=== PATIENT | male | born 1965 | race Caucasian/White ===

== ENCOUNTER 2017-10-05 08:51 | Day surgery (SDC) | payer OTHER, SELFPAY ==
[2017-10-05] MEDS ORDERED: LIDOCAINE 2% MPF 5 ML VIAL ONE ×2 (09:56→12:54)
[2017-10-05] MEDS ORDERED: BUPIVACAINE 0.25% PF 10 ML VIAL ONE (09:57)
[2017-10-05] MEDS ORDERED: TETRACAINE HCL 0.5% 2ML OPTH ONE (09:57)
[2017-10-05] MEDS ORDERED: NA CHLORIDE 0.9% 500 ML ONE (10:04)
[2017-10-05] MEDS: KETOROLAC OPTHALMIC 5 ML BOT ONE ×3 (10:20→10:30)
[2017-10-05] MEDS: PHENYLEPHRINE 10% OPTH 5ML ONE ×3 (10:20→10:30)
[2017-10-05] MEDS: CYCLOPENTOLATE 1% OPTH 2 ML ONE ×3 (10:20→10:30)
[2017-10-05] MEDS: Gatifloxacin Ophth 0.5% (2.5 ML BTL) OPTH ONE ×3 (10:20→10:30)
[2017-10-05] MEDS ORDERED: MOXIFLOXACIN HCL 10 DROPS/ML **OR USE OPTH ONE (10:24)
[2017-10-05] MEDS ORDERED: EPINEPHRINE/PF 1 MG/ML AMP ONE (10:24)
[2017-10-05] MEDS ORDERED: BALANCED SALT IRRIG PLAIN 500 ML BTL IRR ONE (10:24)
[2017-10-05] MEDS ORDERED: NS 0.9% VIAL 10 ML ONE (10:24)
[2017-10-05] MEDS ORDERED: DUOVISC 1 KIT OPTH ONE (10:24)
[2017-10-05] MEDS ORDERED: PROPOFOL 200 MG/20 ML VIAL IV ONE (12:53)
--- NOTE | 2017-10-05 13:41 | P.BOP ---
Preoperative diagnosis: Nuclear sclerotic and posterior subcapsular cataract OS Postoperative diagnosis: Same Primary procedure: Phacoemulsification with IOL OS Estimated blood loss: None Anesthesia: Local (Subtenon's infusion with anesthesia for cataract surgery) Complications: None Implants: ZCB00 +19.0 Transferred to: Other (Day surgery) Condition: Good
[2017-10-05 13:48] VITALS: BP 128/55; TEMP 97; O2SAT 98
--- NOTE | 2017-10-06 00:18 | OP ---
Date of Procedure: 10/05/2017 Surgeon: Mercy Sinha MD Anesthesiologist: 1. Stephany Bridges CRNA. 2. Justo Guerin M.D. Preoperative Diagnosis: Nuclear sclerotic cataract, and posterior subcapsular cataract OS (left eye) . Operation Performed: Phacoemulsification with intraocular lens implant, OS (left eye). Anesthesia: Per cataract surgery. Complications: None. Description Of Procedure: In day surgery, the patient was prepped with Betadine and draped. A conju nctival incision was made in the inferior nasal quadrant with Brandie scissors. A sub-Tenon block c onsisting of a 1:1 mixture of 2% Xylocaine and 0.25% bupivacaine was placed through the conjunctival incision with a blunt cannula. A Honan balloon was placed over the eye and the patient was transferr ed to the operating room. In the operating room the patient was prepped and draped in the usual sterile fashion for ophthalmic surgery. A lid speculum was placed in the OS. Two paracentesis sites were made superiorly and infer iorly in the limbal cornea. Viscoat was placed in the anterior chamber and a crescent blade was used to make a corneal groove and tunnel, and a keratome was used to enter the anterior chamber. Provisc was placed in the anterior chamber and a 360 degree capsulotomy was performed with a cystitome. The lens was hydrodissected with BSS and rotated freely. The lens was removed with a stop and chop tech nique. A 20.70 CDE was used to remove the lens. Residual cortex was removed with the irrigation and aspiration. Provisc was placed in the capsular bag. A ZCB00 +19.0 diopter lens was placed in the c apsular bag without complications. Irrigation and aspiration was used to remove residual viscoelasti c. The paracentesis sites were hydrated with BSS. The wound and paracentesis sites were inspected a nd found to be watertight. Vigamox 0.07 cc was placed intracamerally at the end of the procedure. T he eye was irrigated with balanced salt solution. The eye was patched with a soft cotton patch and F ox metal shield. The patient was returned to day surgery in good condition. Comments: One 10-0 nylon suture was placed in the wound. Discharge Instructions: Mr. Akins is discharged to home in good condition and is to follow up with Dr. Sinha in the morning. SATNAM/PANCHO Voice ID: [id number] Report ID: [id number]
== END 2017-10-05 14:20 | disposition home or self-care (01) ==
LOC: OR 08:51
PROVIDERS: ATTEND Ophthalmology Retina Specialist
PROC: 08RK3JZ Replacement of Left Lens with Synthetic Substitute, Percutaneous Approach (ICD-10-PCS; principal; 2017-10-05 11:00)
DX: H25.12 Age-related nuclear cataract, left eye (principal); H25.042 Posterior subcapsular polar age-related cataract, left eye; H43.813 Vitreous degeneration, bilateral; I25.2 Old myocardial infarction; M10.9 Gout, unspecified; F17.200 Nicotine dependence, unspecified, uncomplicated; Z90.49 Acquired absence of other specified parts of digestive tract; Z98.84 Bariatric surgery status
CPT/HCPCS: 66984; J0171

== ENCOUNTER 2019-04-16 05:06 | Emergency (ER) | payer OTHER ==
[2019-04-16] MEDS ORDERED: WATER FOR INJ,STERILE 10 ML ONE (06:07)
[2019-04-16] MEDS ORDERED: CEFTRIAXONE 1000 MG/VIAL ONE (06:07)
[2019-04-16] MEDS ORDERED: MORPHINE 4 MG/ML SYR ONE ×2 (06:18→07:42)
[2019-04-16] MEDS ORDERED: ONDANSETRON 4 MG (ODT) TAB ONE (06:18)
[2019-04-16 06:38] LABS: Urine Blood NEGATIVE (NEG); Urine Glucose NEGATIVE (NEG); Urine Protein NEGATIVE (NEG); Urine Specific Gravity 1.005 (1.005-1.030)
[2019-04-16 06:39] LABS: Urine Bacteria <20 /HPF (NONE SEEN); Urine Culture Reflex Order NOT NEEDED; Urine RBC <5 /HPF (NONE SEEN)
[2019-04-16] MEDS ORDERED: KETOROLAC 30 MG/ML INJ ONE (07:42)
[2019-04-16] MEDS ORDERED: NA CHLORIDE 0.9% 250 ML ONE (07:42)
[2019-04-16] MEDS ORDERED: FAMOTIDINE 20 MG/2 ML VIAL IV ONE (07:42)
--- NOTE | 2019-04-16 08:12 | ER ---
Nurse's Notes [facility] Name: Melody Akins Jr Age: 53 yrs Sex: Male : 1965 Arrival Date: 04/16/2019 Time: 05:09 Bed 7 Private MD: Diagnosis: Hydrocele, unspecified Presentation: 04/16 05:18 Presenting complaint: Patient states: Right testicular swelling, pain with urination; lp1 States swelling began about a week ago, but pain increased; Seen at local clinic yesterday and recommended to come to ER. Transition of care: patient was not received from another setting of care. Onset of symptoms was April 16, 2019. Risk Assessment: Do you want to hurt yourself or someone else? Patient reports no desire to harm self or others. Initial Sepsis Screen: Does the patient meet any 2 criteria? No. Patient's initial sepsis screen is negative. Does the patient have a suspected source of infection? No. Patient's initial sepsis screen is negative. Care prior to arrival: None. 05:18 Method Of Arrival: Wheelchair lp1 05:18 Acuity: RANDAL 3 lp1 Historical: - Allergies: 05:20 No Known Allergies; lp1 - Home Meds: 05:20 None [Active]; lp1 - PMHx: 05:20 Alcoholism; CVA; Myocardial infarction; lp1 - PSHx: 05:20 Hernia repair; Gastric Bypass; Cholecystectomy; lp1 - Immunization history:: Adult Immunizations up to date. - Social history:: Smoking status: Patient/guardian denies using tobacco. - Ebola Screening: : No symptoms or risks identified at this time. Screenin:21 Abuse screen: Denies threats or abuse. Denies injuries from another. Nutritional lp1 screening: No deficits noted. Tuberculosis screening: No symptoms or risk factors identified. Fall Risk None identified. Assessment: 05:20 General: Appears in no apparent distress. Behavior is appropriate for age. Pain: lp1 Complains of pain in groin Pain currently is 10 out of 10 on a pain scale. Quality of pain is described as pressure. Neuro: Level of Consciousness is awake, alert, obeys commands, Oriented to person, place, time, situation. Cardiovascular: Patient's skin is warm and dry. Respiratory: Respiratory effort is even, unlabored, Respiratory pattern is regular. GI: No signs and/or symptoms were reported involving the gastrointestinal system. : Swelling noted on scrotum Reports pain with urination. EENT: No signs and/or symptoms were reported regarding the EENT system. Derm: Skin is intact, Skin is dry, Skin is normal. Musculoskeletal: No deficits noted. 06:45 Reassessment: Patient appears in no apparent distress at this time. Patient resting, lp1 eyes closed, respirations unlabored ; Aware of waiting for ultrasound. 07:04 Reassessment: Patient appears in no apparent distress at this time. Patient and/or ch family updated on plan of care and expected duration. Pain level reassessed. Patient is alert, oriented x 3, equal unlabored respirations, skin warm/dry/pink. Patient states symptoms have not improved. General: Appears in no apparent distress. uncomfortable, Behavior is calm, cooperative, appropriate for age. Respiratory: No deficits noted. GI: No signs and/or symptoms were reported involving the gastrointestinal system. : Swelling noted on scrotum. Derm: Skin is pink, warm \T\ dry. 07:43 Reassessment: Patient appears in no apparent distress at this time. No changes from previously documented assessment. Patient and/or family updated on plan of care and expected duration. Pain level reassessed. Patient is alert, oriented x 3, equal unlabored respirations, skin warm/dry/pink. pt states he does not feel any better. us contacted, US tech at bedside now. provider notified of pt pain level. awaiting US results. 08:18 Reassessment: Patient appears in no apparent distress at this time. Patient and/or ch family updated on plan of care and expected duration. Pain level reassessed. Patient is alert, oriented x 3, equal unlabored respirations, skin warm/dry/pink. Patient states feeling better. Patient states symptoms have improved. Vital Signs: 05:19 BP 127 / 67; Pulse 70; Resp 18; Temp 98(O); Pulse Ox 100% on R/A; Weight 101.6 kg; lp1 Height 5 ft. 9 in. (175.26 cm); Pain 10/10; 07:10 BP 116 / 92; Pulse 61; Resp 15; Temp 98.8; Pulse Ox 99% on R/A; Pain 8/10; ch 08:18 BP 134 / 70; Pulse 65; Resp 14; Temp 98.9; Pulse Ox 99% on R/A; Pain 5/10; ch 05:19 Body Mass Index 33.08 (101.60 kg, 175.26 cm) lp1 ED Course: 05:09 Patient arrived in ED. ag3 05:10 Ramses Gallagher MD is Attending Physician. gs 05:16 Ramses Gallagher MD is Attending Physician. gs 05:18 Kelli Costa, RN is Primary Nurse. lp1 05:19 Triage completed. lp1 05:19 Arm band placed on. lp1 05:22 Patient has correct armband on for positive identification. Placed in gown. lp1 05:45 Levy Hammer PA is PHCP. jr8 05:45 Ramses Gallagher MD is Attending Physician. jr8 07:04 Primary Nurse role handed off by Kelli Costa, RN ch 07:04 Ana Jimenez, BRANDON is Primary Nurse. ch 07:40 Inserted saline lock: 20 gauge in right antecubital area, using aseptic technique. ch Blood collected. 07:40 No provider procedures requiring assistance completed. ch 07:57 US Scrotum Testicles In Process Unspecified. EDMS 07:57 Ultrasound completed. Patient tolerated well. Notified ED Physician jamaica. sg3 08:10 Jacky Valenzuela MD is Referral Physician. jr8 08:19 IV discontinued, intact, bleeding controlled, No redness/swelling at site. Pressure ch dressing applied. Administered Medications: 06:20 Drug: Rocephin (cefTRIAXone) 1 grams Route: IM; Site: right gluteus; lp1 07:31 Follow up: Response: No adverse reaction ch 06:20 Drug: morphine 4 mg Route: IM; Site: right gluteus; lp1 07:31 Follow up: Response: No adverse reaction; Pain is unchanged, physician notified ch 06:20 Drug: Zofran 4 mg Route: PO; lp1 07:30 Follow up: Response: No adverse reaction ch 07:52 Drug: morphine 4 mg Route: IVP; Site: right antecubital; ch 08:21 Follow up: Response: No adverse reaction; Marked relief of symptoms ch 07:52 Drug: TORadol - Ketorolac 15 mg Route: IVP; Site: right antecubital; ch 08:20 Follow up: Response: No adverse reaction; Marked relief of symptoms 07:52 Drug: Pepcid 20 mg Route: IVP; Site: right antecubital; 08:20 Follow up: Response: No adverse reaction; Marked relief of symptoms Outcome: 08:11 Discharge ordered by MD. wren 08:19 Discharged to home ambulatory, with family. 08:19 Condition: improved 08:19 Discharge instructions given to patient, Instructed on discharge instructions, follow up and referral plans. medication usage, Demonstrated understanding of instructions, follow-up care, medications, Prescriptions given X 1. 08:24 Patient left the ED. Signatures: Dispatcher [employer] EDMS Ana Jimenez RN RN Kelli Costa RN RN lp1 Levy Hammer PA PA jr8 Ramses Gallagher MD MD gs Godinez, Sarah sg3 Libra Peters3
--- NOTE | 2019-04-16 08:12 | EDPHYS ---
Physician Documentation [facility] Name: Melody Akins Jr Age: 53 yrs Sex: Male : 1965 Arrival Date: 04/16/2019 Time: 05:09 Bed 7 Private MD: ED Physician Ramses Gallagher HPI: 04/16 05:18 This 53 yrs old Male presents to ER via Unassigned with complaints of Groin gs Pain. 05:18 The patient presents with swelling, that is severe, of the right testicle. Onset: The gs symptoms/episode began/occurred 1 week(s) ago. Modifying factors: the symptoms are aggravated by movement, urinating. Associated signs and symptoms: Pertinent negatives: fever. Associated signs and symptoms: Pertinent negatives: vomiting. Severity of symptoms: At their worst the symptoms were severe, in the emergency department the symptoms are unchanged. The patient has not experienced similar symptoms in the past. Historical: - Allergies: 05:20 No Known Allergies; lp1 - Home Meds: 05:20 None [Active]; lp1 - PMHx: 05:20 Alcoholism; CVA; Myocardial infarction; lp1 - PSHx: 05:20 Hernia repair; Gastric Bypass; Cholecystectomy; lp1 - Immunization history:: Adult Immunizations up to date. - Social history:: Smoking status: Patient/guardian denies using tobacco. - Ebola Screening: : No symptoms or risks identified at this time. ROS: 05:18 All other systems are negative. gs 05:52 Constitutional: Negative for fever, chills, and weight loss, Eyes: Negative for injury, jr8 pain, redness, and discharge, ENT: Negative for injury, pain, and discharge, Neck: Negative for injury, pain, and swelling, Cardiovascular: Negative for chest pain, palpitations, and edema, Respiratory: Negative for shortness of breath, cough, wheezing, and pleuritic chest pain, Abdomen/GI: Negative for abdominal pain, nausea, vomiting, diarrhea, and constipation, MS/Extremity: Negative for injury and deformity. 05:52 : Positive for burning with urination, testicular pain Negative for injury or acute deformity, urinary frequency, hematuria, pelvic pain, flank pain, difficulty urinating, bladder incontinence, foul smelling urine. Exam: 05:18 Head/Face: Normocephalic, atraumatic. Eyes: Pupils equal round and reactive to light, gs extra-ocular motions intact. Lids and lashes normal. Conjunctiva and sclera are non-icteric and not injected. Cornea within normal limits. Periorbital areas with no swelling, redness, or edema. ENT: Nares patent. No nasal discharge, no septal abnormalities noted. Tympanic membranes are normal and external auditory canals are clear. Oropharynx with no redness, swelling, or masses, exudates, or evidence of obstruction, uvula midline. Mucous membranes moist. Neck: Trachea midline, no thyromegaly or masses palpated, and no cervical lymphadenopathy. Supple, full range of motion without nuchal rigidity, or vertebral point tenderness. No Meningismus. 05:18 Constitutional: The patient appears alert, awake. 05:19 Chest/axilla: Normal chest wall appearance and motion. Nontender with no deformity. gs No lesions are appreciated. Cardiovascular: Regular rate and rhythm with a normal S1 and S2. No gallops, murmurs, or rubs. Normal PMI, no JVD. No pulse deficits. Respiratory: Lungs have equal breath sounds bilaterally, clear to auscultation and percussion. No rales, rhonchi or wheezes noted. No increased work of breathing, no retractions or nasal flaring. Abdomen/GI: Soft, non-tender, with normal bowel sounds. No distension or tympany. No guarding or rebound. No evidence of tenderness throughout. Back: No spinal tenderness. No costovertebral tenderness. Full range of motion. Skin: Warm, dry with normal turgor. Normal color with no rashes, no lesions, and no evidence of cellulitis. MS/ Extremity: Pulses equal, no cyanosis. Neurovascular intact. Full, normal range of motion. Neuro: Awake and alert, GCS 15, oriented to person, place, time, and situation. Cranial nerves II-XII grossly intact. Motor strength 5/5 in all extremities. Sensory grossly intact. Cerebellar exam normal. Normal gait. 05:19 : Male external genitalia: erythema, is absent, swelling, scrotal, that is severe, tenderness, of the right testicle is noted, that is moderate. Vital Signs: 05:19 BP 127 / 67; Pulse 70; Resp 18; Temp 98(O); Pulse Ox 100% on R/A; Weight 101.6 kg; lp1 Height 5 ft. 9 in. (175.26 cm); Pain 10/10; 07:10 BP 116 / 92; Pulse 61; Resp 15; Temp 98.8; Pulse Ox 99% on R/A; Pain 8/10; ch 08:18 BP 134 / 70; Pulse 65; Resp 14; Temp 98.9; Pulse Ox 99% on R/A; Pain 5/10; ch 05:19 Body Mass Index 33.08 (101.60 kg, 175.26 cm) lp1 MDM: 05:15 Patient medically screened. 08:08 Data reviewed: vital signs, nurses notes, radiologic studies, and as a result, I will jr8 discharge patient. Data interpreted: Pulse oximetry: on room air is 100 %. Interpretation: normal. Counseling: I had a detailed discussion with the patient and/or guardian regarding: the historical points, exam findings, and any diagnostic results supporting the discharge/admit diagnosis, radiology results. Medication response: morphine relieved the patient's pain. Symptoms have resolved. Physician consultation: Jacky Valenzuela MD was called at 08:05, regarding outpatient follow-up, and will see patient in office. ED course: Pt pain controlled, US shows hydrocele with good flow, discussed case with Dr. Valenzuela who recommends FU in clinic. Diagnosis and plan discussed with pt. 04/16 05:17 Order name: Urine Microscopic Only; Complete Time: 06:46 04/16 05:30 Order name: Urine Dipstick--Ancillary (enter results); Complete Time: 06:46 [facility] 04/16 05:17 Order name: US Scrotum Testicles; Complete Time: 15:20 04/16 05:17 Order name: Urine Dipstick-Ancillary (obtain specimen); Complete Time: 05:22 04/16 07:39 Order name: SL; Complete Time: 08:20 jr8 Administered Medications: 06:20 Drug: Rocephin (cefTRIAXone) 1 grams Route: IM; Site: right gluteus; lp1 07:31 Follow up: Response: No adverse reaction ch 06:20 Drug: morphine 4 mg Route: IM; Site: right gluteus; lp1 07:31 Follow up: Response: No adverse reaction; Pain is unchanged, physician notified ch 06:20 Drug: Zofran 4 mg Route: PO; lp1 07:30 Follow up: Response: No adverse reaction ch 07:52 Drug: morphine 4 mg Route: IVP; Site: right antecubital; ch 08:21 Follow up: Response: No adverse reaction; Marked relief of symptoms ch 07:52 Drug: TORadol - Ketorolac 15 mg Route: IVP; Site: right antecubital; ch 08:20 Follow up: Response: No adverse reaction; Marked relief of symptoms ch 07:52 Drug: Pepcid 20 mg Route: IVP; Site: right antecubital; ch 08:20 Follow up: Response: No adverse reaction; Marked relief of symptoms ch Disposition: 04/16/19 08:11 Discharged to Home. Impression: Hydrocele, unspecified. - Condition is Stable. - Discharge Instructions: Hydrocele, Adult, Hydrocelectomy, Adult. - Prescriptions for Naprosyn 500 mg Oral Tablet - take 1 tablet by ORAL route 2 times per day take with food; 20 tablet. - Work release form, Medication Reconciliation Form, Thank You Letter form. - Follow up: Jacky Valenzuela MD; When: 2 - 3 days; Reason: Recheck today's complaints, Continuance of care, Re-evaluation by your physician. - Problem is new. - Symptoms have improved. Addendum: 04/19/2019 14:50 Co-signature as Attending Physician, Ramses Gallagher MD. g s Signatures: Dispatcher [employer] EDMS Ana Jimenez RN RN Kelli Costa RN RN lp1 Levy Hammer, VIJI PA jr8 Ramses Gallagher MD MD Corrections: (The following items were deleted from the chart) 04/16 08:24 08:11 04/16/2019 08:11 Discharged to Home. Impression: Hydrocele, unspecified. ch Condition is Stable. Forms are Medication Reconciliation Form, Thank You Letter, Antibiotic Education, Prescription Opioid Use. Follow up: Jacky Valenzuela; When: 2 - 3 days; Reason: Recheck today's complaints, Continuance of care, Re-evaluation by your physician. Problem is new. Symptoms have improved. jr8
--- NOTE | 2019-04-16 08:19 | RAD REPORT ---
EXAM DESCRIPTION: US - Scrotum Testicles - 04/16/2019 7:58 am CLINICAL HISTORY: Testicular pain and swelling COMPARISON: None FINDINGS: Right testicle measures 4.1 x 2.7 x 3.6 centimeters. Echotexture is homogeneous. Normal bl ood flow Left testicle measures 4.5 x 2.3 x 3 centimeters. Echotexture is homogeneous. Normal blood flow The epididymides are normal in size and echotexture. Normal blood flow is seen. A very large right hydrocele. Small left hydrocele IMPRESSION: Very large right hydrocele
[2019-04-16 08:33] VITALS: O2SAT 99
[2019-04-16 08:34] VITALS: BP 134/70; TEMP 98.9
== END 2019-04-16 08:24 | disposition home or self-care (01) ==
LOC: ER 05:06
DX: N43.3 Hydrocele, unspecified (principal)
CPT/HCPCS: 76870; 81003; 81015; 96372; 96374; 96375; 99284

== ENCOUNTER 2019-07-30 12:53 | Emergency (ER) | payer OTHER ==
[2019-07-30] MEDS ORDERED: HYDROCODONE/APAP 5/325 MG TAB ONE (13:30)
[2019-07-30 13:45] LABS: Urine Blood NEGATIVE (NEG); Urine Glucose NEGATIVE (NEG); Urine Protein NEGATIVE (NEG); Urine Specific Gravity 1.025 (1.005-1.030)
--- NOTE | 2019-07-30 14:41 | RAD REPORT ---
EXAM DESCRIPTION: US - Scrotum Testicles - 07/30/2019 2:35 pm CLINICAL HISTORY: Right testicular pain and swelling COMPARISON: Scrotal ultrasound March 2019 FINDINGS: Patient has a very large right hydrocele. This may be persistent or recurrent. A large hyd rocele was detailed previously. No intratesticular mass. Doppler evaluation shows normal blood flow within each testicle. No epididym is enlargement or hyperemia. No herniated bowel loops identifiable. No scrotal wall thickening or christine ma. IMPRESSION: No testicular or epididymis abnormality. Very large persistent or recurrent right side hydrocele.
--- NOTE | 2019-07-30 15:07 | EDPHYS ---
Physician Documentation [facility] Name: Melody Akins Jr Age: 53 yrs Sex: Male : 1965 Arrival Date: 07/30/2019 Time: 12:55 Bed 16 Private MD: Scott Murillo ED Physician Alberto Perez HPI: 07/30 15:01 This 53 yrs old Male presents to ER via Ambulatory with complaints of rn Testicular Swelling. 15:01 The patient presents with swelling, tenderness. Onset: The symptoms/episode rn began/occurred 4 month(s) ago. Severity of symptoms: At their worst the symptoms were moderate. 15:01 The patient has experienced similar episodes in the past. The patient has not recently rn seen a physician. 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 . Historical: - Allergies: 13:06 No Known Allergies; sv - PMHx: 13:06 Alcoholism; CVA; Myocardial infarction; sv - PSHx: 13:06 Hernia repair; Gastric Bypass; Cholecystectomy; sv - Immunization history:: Adult Immunizations up to date, Flu vaccine is not up to date. - Social history:: Smoking status: Patient/guardian denies using tobacco, Patient uses alcohol, on a daily basis. - Ebola Screening: : No symptoms or risks identified at this time. - Family history:: not pertinent. - Hospitalizations: : No recent hospitalization is reported. ROS: 15:04 Constitutional: Negative for fever, chills, and weight loss, Eyes: Negative for injury, rn pain, redness, and discharge, Cardiovascular: Negative for chest pain, palpitations, and edema, Respiratory: Negative for shortness of breath, cough, wheezing, and pleuritic chest pain, Abdomen/GI: Negative for abdominal pain, nausea, vomiting, diarrhea, and constipation, : + right testicular swelling and mild tenderness without erythema or fluctuance MS/Extremity: Negative for injury and deformity, Skin: Negative for injury, rash, and discoloration, Neuro: Negative for headache, weakness, numbness, tingling, and seizure. Exam: 15:04 Constitutional: This is a well developed, well nourished patient who is awake, alert, rn and in no acute distress. Abdomen/GI: soft, non-tender Male : + right testicular swelling and mild tenderness without erythema or warmth, no fluctuance Vital Signs: 13:06 BP 154 / 103; Pulse 95; Resp 17; Temp 98.4; Pulse Ox 98% ; Weight 88.45 kg; Height 5 sv ft. 6 in. (167.64 cm); Pain 6/10; 14:23 BP 158 / 86; Pulse 90; Resp 18; Temp 98; Pulse Ox 100% on R/A; mg2 15:23 BP 153 / 83; Pulse 88; Resp 18; Temp 98; Pulse Ox 100% on R/A; mg2 13:06 Body Mass Index 31.47 (88.45 kg, 167.64 cm) sv MDM: 13:16 Patient medically screened. rn 15:04 Differential diagnosis: UTI, hydrocele, varicocele, spermatocele. Data reviewed: vital rn signs, nurses notes, lab test result(s), radiologic studies, ultrasound, and as a result, I will discharge patient. Counseling: I had a detailed discussion with the patient and/or guardian regarding: the historical points, exam findings, and any diagnostic results supporting the discharge/admit diagnosis, lab results, radiology results, the need for outpatient follow up, to return to the emergency department if symptoms worsen or persist or if there are any questions or concerns that arise at home. Special discussion: I discussed with the patient/guardian in detail that at this point there is no indication for admission to the hospital. It is understood, however, that if the symptoms persist or worsen the patient needs to return immediately for re-evaluation. Based on the history and exam findings, there is no indication for further emergent testing or inpatient evaluation. I discussed with the patient/guardian the need to see the urologist for further evaluation of the symptoms. ED course: No acute change, + hydrocele that has been present for months, no indication for emergent surgery at this point, will dc home with Dr. Nicolas munoz/marco a. 07/30 13:43 Order name: Urine Dipstick--Ancillary (enter results); Complete Time: 13:58 ms 07/30 13:25 Order name: US Scrotum Testicles; Complete Time: 14:55 rn 07/30 13:25 Order name: Urine Dipstick-Ancillary (obtain specimen); Complete Time: 13:41 rn Administered Medications: 13:32 Drug: Treadwell 5 mg-325 mg 1 tabs Route: PO; mg2 15:17 Follow up: Response: No adverse reaction; Marked relief of symptoms mg2 Disposition: 07/30/19 15:06 Discharged to Home. Impression: Hydrocele, unspecified. - Condition is Stable. - Discharge Instructions: Hydrocele, Adult. - Prescriptions for Tramadol 50 mg Oral Tablet - take 1 tablet by ORAL route every 8 hours as needed; 15 tablet. - Medication Reconciliation Form, Thank You Letter, Antibiotic Education, Prescription Opioid Use form. - Follow up: Jacky Valenzuela MD; When: As needed; Reason: Recheck today's complaints, Re-evaluation by your physician. - Problem is an ongoing problem. - Symptoms are unchanged. Signatures: Dispatcher [employer] EDJane Sarmiento RN RN sv Nieto, Roman, MD MD rn Gardose, Michele, RN RN mg2 Corrections: (The following items were deleted from the chart) 15:24 15:06 07/30/2019 15:06 Discharged to Home. Impression: Hydrocele, unspecified. mg2 Condition is Stable. Forms are Medication Reconciliation Form, Thank You Letter, Antibiotic Education, Prescription Opioid Use. Follow up: Jacky Valnezuela; When: As needed; Reason: Recheck today's complaints, Re-evaluation by your physician. Problem is an ongoing problem. Symptoms are unchanged. rn
--- NOTE | 2019-07-30 15:07 | ER ---
Nurse's Notes [facility] Name: Melody Akins Jr Age: 53 yrs Sex: Male : 1965 Arrival Date: 07/30/2019 Time: 12:55 Bed 16 Private MD: Scott Murillo Diagnosis: Hydrocele, unspecified Presentation: 07/30 13:04 Presenting complaint: Patient states: right testicle swelling that has been ongoing for sv months. Today reports that the swelling has increased and is unable to get any relief from it. Has seen the clinic but doesn't remember what they told him. Transition of care: patient was not received from another setting of care. Onset of symptoms was 2018. Risk Assessment: Do you want to hurt yourself or someone else? Patient reports no desire to harm self or others. Care prior to arrival: None. 13:04 Method Of Arrival: Ambulatory sv 13:04 Acuity: RANDAL 2 sv 14:21 Initial Sepsis Screen: Does the patient meet any 2 criteria? No. Patient's initial mg2 sepsis screen is negative. Does the patient have a suspected source of infection? No. Patient's initial sepsis screen is negative. Historical: - Allergies: 13:06 No Known Allergies; sv - PMHx: 13:06 Alcoholism; CVA; Myocardial infarction; sv - PSHx: 13:06 Hernia repair; Gastric Bypass; Cholecystectomy; sv - Immunization history:: Adult Immunizations up to date, Flu vaccine is not up to date. - Social history:: Smoking status: Patient/guardian denies using tobacco, Patient uses alcohol, on a daily basis. - Ebola Screening: : No symptoms or risks identified at this time. - Family history:: not pertinent. - Hospitalizations: : No recent hospitalization is reported. Screenin:21 Abuse screen: Denies threats or abuse. Denies injuries from another. Nutritional mg2 screening: No deficits noted. Tuberculosis screening: No symptoms or risk factors identified. Fall Risk None identified. Assessment: 14:19 General: Appears in no apparent distress. comfortable, Behavior is calm, cooperative. mg2 Pain: Complains of pain in testicle. Neuro: Level of Consciousness is awake, alert, obeys commands, Oriented to person, place, time, situation. Cardiovascular: Capillary refill < 3 seconds Patient's skin is warm and dry. Respiratory: Airway is patent Respiratory effort is even, unlabored, Respiratory pattern is regular, symmetrical. GI: No signs and/or symptoms were reported involving the gastrointestinal system. : Reports pain scrotum. EENT: No signs and/or symptoms were reported regarding the EENT system. Derm: Skin is intact, is healthy with good turgor, Skin is pink, warm \T\ dry. normal. Musculoskeletal: Circulation, motion, and sensation intact. Capillary refill. 15:23 Reassessment: Patient appears in no apparent distress at this time. Patient states mg2 feeling better. Vital Signs: 13:06 BP 154 / 103; Pulse 95; Resp 17; Temp 98.4; Pulse Ox 98% ; Weight 88.45 kg; Height 5 sv ft. 6 in. (167.64 cm); Pain 6/10; 14:23 BP 158 / 86; Pulse 90; Resp 18; Temp 98; Pulse Ox 100% on R/A; mg2 15:23 BP 153 / 83; Pulse 88; Resp 18; Temp 98; Pulse Ox 100% on R/A; mg2 13:06 Body Mass Index 31.47 (88.45 kg, 167.64 cm) sv ED Course: 12:55 Patient arrived in ED. as 12:56 Scott Murillo MD is Private Physician. as 13:04 Arm band placed on. sv 13:06 Triage completed. sv 13:16 Alberto Perez MD is Attending Physician. rn 13:26 Rich Kelley RN is Primary Nurse. mg2 14:21 No provider procedures requiring assistance completed. Patient did not have IV access mg2 during this emergency room visit. 14:22 Patient has correct armband on for positive identification. Pulse ox on. NIBP on. Door mg2 closed. 14:34 Ultrasound completed. Patient tolerated well. sg3 14:34 US Scrotum Testicles In Process Unspecified. EDMS 15:06 Jacky Valenzuela MD is Referral Physician. rn Administered Medications: 13:32 Drug: [place] 5 mg-325 mg 1 tabs Route: PO; mg2 15:17 Follow up: Response: No adverse reaction; Marked relief of symptoms mg2 Outcome: 15:06 Discharge ordered by . rn 15:24 Discharged to home ambulatory. mg2 15:24 Condition: stable 15:24 Discharge instructions given to patient, Instructed on discharge instructions, follow up and referral plans. medication usage, Demonstrated understanding of instructions, follow-up care, medications, Prescriptions given X 1. 15:24 Patient left the ED. mg2 Signatures: Dispatcher [employer] EDJane Sarmiento, Yadira Manrique RN, Roman, MD MD rn Godinez, Bertha sg3 Rich Kelley RN RN mg2
[2019-07-30 15:40] VITALS: TEMP 98; O2SAT 100
[2019-07-30 15:41] VITALS: BP 153/83
== END 2019-07-30 15:24 | disposition home or self-care (01) ==
LOC: ER 12:53
DX: N43.3 Hydrocele, unspecified (principal); F10.20 Alcohol dependence, uncomplicated
CPT/HCPCS: 76870; 81003; 99284

== ENCOUNTER 2019-08-02 17:28 | Emergency (ER) | payer OTHER ==
[2019-08-02 18:08] LABS: Absolute Lymphocytes (CBC) 1.5 K/uL (0.7-4.9); Basophils % 0.4 % (0-1.3); Hematocrit 45.1 % (39.6-49.0); Lymphocytes % 20.2 % (15.3-44.8); MPV 7.8 fL (7.6-11.3); RBC Red Blood Cell Count 5.37 M/uL (4.33-5.43)
[2019-08-02 18:25] LABS: Albumin 4.3 g/dL (3.4-5.0); Bilirubin Total 1.7 mg/dL (0.2-1.0); Potassium 3.8 mmol/L (3.5-5.1); Protein, Total 7.6 g/dL (6.4-8.2)
--- NOTE | 2019-08-02 18:55 | RAD REPORT ---
EXAM DESCRIPTION: CT - Head Brain Wo Cont - 08/02/2019 6:49 pm CLINICAL HISTORY: fall Fall, trauma, head injury COMPARISON: HEAD BRAIN W O CONTRAST dated 11/08/2011; Chest Abdomen W Con dated 08/02/2019 TECHNIQUE: All CT scans are performed using dose optimization technique as appropriate and may inclu de automated exposure control or mA/KV adjustment according to patient size. FINDINGS: No intracranial hemorrhage, hydrocephalus or extra-axial fluid collection.No areas of brai n edema or evidence of midline shift. The paranasal sinuses and mastoids are clear. The calvarium is intact. IMPRESSION: No acute intracranial abnormality.
--- NOTE | 2019-08-02 19:06 | RAD REPORT ---
EXAM DESCRIPTION: CT - Chest Abdomen W Con - 08/02/2019 6:49 pm CLINICAL HISTORY: Chest and abdomen pain. fall. right rib, cva, liver COMPARISON: No comparisons TECHNIQUE: Approximately 100 mL nonionic IV contrast was administered to the patient. All CT scans are performed using dose optimization technique as appropriate and may include automated exposure control or mA/KV adjustment according to patient size. FINDINGS: The lungs are clear.No pleural or pericardial effusion.No intrathoracic adenopathy.Nondisp laced right lateral eighth rib fracture is suspected. The liver, spleen, pancreas, adrenal glands and kidneys are within normal limits. Postsurgical change s involve stomach. Cholecystectomy clips. No bowel obstruction, free air, free fluid or abscess. Normal appendix. Moderate fat containing umbil ical. No pathologic lymphadenopathy in the abdomen or pelvis. Mild chronic wedging of several thoracic vertebral bodies. IMPRESSION: Nondisplaced right lateral eighth rib fracture.No additional acute abnormality identifie d.
[2019-08-02] MEDS ORDERED: HYDROCODONE/APAP 5/325 MG TAB ONE (19:23)
--- NOTE | 2019-08-02 19:23 | ER ---
Nurse's Notes [facility] Name: Melody Akins Jr Age: 53 yrs Sex: Male : 1965 Arrival Date: 08/02/2019 Time: 17:30 Bed 24 Private MD: Diagnosis: Right rib fracture, 8th;Abrasion of abdominal wall Presentation: 08/02 17:36 Presenting complaint: Right chest wall pain after fall from fence onto tree stump hb yesterday. Transition of care: patient was not received from another setting of care. Onset of symptoms was August 01, 2019. Risk Assessment: Do you want to hurt yourself or someone else? Patient reports no desire to harm self or others. Initial Sepsis Screen: Does the patient meet any 2 criteria? No. Patient's initial sepsis screen is negative. Does the patient have a suspected source of infection? No. Patient's initial sepsis screen is negative. Care prior to arrival: None. 17:36 Method Of Arrival: Ambulatory hb 17:36 Acuity: RANDAL 4 hb Historical: - Allergies: 17:36 No Known Allergies; hb - PMHx: 17:36 Alcoholism; CVA; Myocardial infarction; hb - PSHx: 17:36 Hernia repair; Gastric Bypass; Cholecystectomy; hb - Immunization history:: Adult Immunizations up to date. - Social history:: Smoking status: Patient uses tobacco products, smokes one-half pack cigarettes per day. - Ebola Screening: : No symptoms or risks identified at this time. Screenin:52 Abuse screen: Denies threats or abuse. Denies injuries from another. Nutritional ca1 screening: No deficits noted. Tuberculosis screening: No symptoms or risk factors identified. Fall Risk Fall in past 12 months (25 points). IV access (20 points). Assessment: 17:52 General: Appears in no apparent distress. comfortable, Behavior is calm, cooperative, ca1 appropriate for age. Pain: Complains of pain in R ribcage Pain currently is 8 out of 10 on a pain scale. Pain began 1 day ago. Neuro: Level of Consciousness is awake, alert, obeys commands, Oriented to person, place, time, situation. Cardiovascular: Heart tones S1 S2 present Capillary refill < 3 seconds Patient's skin is warm and dry. Respiratory: Airway is patent Respiratory effort is even, unlabored, Respiratory pattern is regular, symmetrical, Breath sounds are clear bilaterally. GI: Abdomen is flat, non-distended, Bowel sounds present X 4 quads. Abd is soft and non tender X 4 quads. : No deficits noted. No signs and/or symptoms were reported regarding the genitourinary system. EENT: No deficits noted. No signs and/or symptoms were reported regarding the EENT system. Derm: Skin is intact, is healthy with good turgor, Skin is pink, warm \T\ dry. Musculoskeletal: Circulation, motion, and sensation intact. Capillary refill < 3 seconds. 19:11 Reassessment: Patient and/or family updated on plan of care and expected duration. Pain ad1 level reassessed. Patient is alert, oriented x 3, equal unlabored respirations, skin warm/dry/pink. Pain: Pain: Complains of pain in right ribcage Pain currently is 8 out of 10 on a pain scale. Vital Signs: 17:37 BP 148 / 97; Pulse 86; Resp 16; Temp 99.1(TE); Pulse Ox 100% ; Weight 86.18 kg; Height hb 5 ft. 9 in. (175.26 cm); Pain 8/10; 19:14 BP 141 / 67; Pulse 80; Resp 18; Pulse Ox 100% ; ad1 17:37 Body Mass Index 28.06 (86.18 kg, 175.26 cm) hb ED Course: 17:30 Patient arrived in ED. ag5 17:36 Arm band placed on. hb 17:37 Triage completed. hb 17:40 Tho Leo MD is Attending Physician. ps1 17:41 Eda Gómez, RN is Primary Nurse. ca1 17:52 Patient has correct armband on for positive identification. Bed in low position. Pulse ca1 ox on. NIBP on. Warm blanket given. 17:52 No provider procedures requiring assistance completed. ca1 18:49 CT Chest Abdomen W/ Contrast In Process Unspecified. EDMS 18:49 CT Head Brain wo Cont In Process Unspecified. EDMS 19:49 intact, bleeding controlled. ad1 Administered Medications: 19:27 Drug: [place] 5 mg-325 mg 1 tabs {Note: AlertCalm 0.} Route: PO; ad1 Outcome: 19:23 Discharge ordered by . ps1 19:30 Discharged to home ambulatory. ad1 19:30 Condition: stable 19:30 Discharge instructions given to patient, Instructed on discharge instructions, follow up and referral plans. Demonstrated understanding of instructions, follow-up care, medications, Prescriptions given X 3. 19:30 Condition: Right AC IV removed. No bleeding noted. ad1 19:50 Patient left the ED. ad1 Signatures: Dispatcher [employer] EDMS Estrella Rivera RN RN ad1 Chely Mariano RN RN hb Tho Leo MD MD ps1 Eda Gómez RN RN ca1 Sybil Talbert ag5 Corrections: (The following items were deleted from the chart) 17:39 17:36 Acuity: RANDAL 3 hb hb
--- NOTE | 2019-08-02 19:23 | EDPHYS ---
[facility] Name: Melody Akins Jr Age: 53 yrs Sex: Male : 1965 Arrival Date: 08/02/2019 Time: 17:30 Bed 24 Private MD: ED Physician Tho Leo HPI: 08/02 17:56 This 53 yrs old Male presents to ER via Ambulatory with complaints of Fall ps1 Injury, Rib Pain. 17:56 Patient was in the [place] and jumping over a fence, fell on a tree stump. No LOC. Has ps1 right lower rib and CVA tenderness. Moderate pain. No shortness of breath. No obvious deformity or ecchymosis. Hx of schizophrenia at baseline. . Historical: - Allergies: 17:36 No Known Allergies; hb - PMHx: 17:36 Alcoholism; CVA; Myocardial infarction; hb - PSHx: 17:36 Hernia repair; Gastric Bypass; Cholecystectomy; hb - Immunization history:: Adult Immunizations up to date. - Social history:: Smoking status: Patient uses tobacco products, smokes one-half pack cigarettes per day. - Ebola Screening: : No symptoms or risks identified at this time. ROS: 17:56 Constitutional: Negative for fever, chills, and weight loss, Eyes: Negative for injury, ps1 pain, redness, and discharge, Cardiovascular: Negative for chest pain, palpitations, and edema, Back: Negative for injury and pain, MS/Extremity: Negative for injury and deformity, Neuro: Negative for headache, weakness, numbness, tingling, and seizure. 17:56 Skin: Positive for abrasion(s), of the abdomen, right arm and left arm. Exam: 17:56 Constitutional: This is a well developed, well nourished patient who is awake, alert, ps1 and in no acute distress. Head/Face: Normocephalic, atraumatic. Eyes: Pupils equal round and reactive to light, extra-ocular motions intact. Lids and lashes normal. Conjunctiva and sclera are non-icteric and not injected. Cardiovascular: Regular rate and rhythm. No gallops, murmurs, or rubs. Normal PMI, no JVD. No pulse deficits. Respiratory: Lungs have equal breath sounds bilaterally, clear to auscultation and percussion. No rales, rhonchi or wheezes noted. No increased work of breathing, no retractions or nasal flaring. Abdomen/GI: Soft, non-tender, with normal bowel sounds. No distension or tympany. No guarding or rebound. No evidence of tenderness throughout. MS/ Extremity: Pulses equal, no cyanosis. Neurovascular intact. Full, normal range of motion. Neuro: Awake and alert, GCS 15, oriented to person, place, time, and situation. Cranial nerves II-XII grossly intact. Sensory grossly intact. 17:56 Chest/axilla: Inspection: normal, Palpation: tenderness, that is moderate, of the right lateral anterior chest. 17:56 Skin: multiple abrasions from falling in [place] on upper extremities and abdominal wall. . Vital Signs: 17:37 BP 148 / 97; Pulse 86; Resp 16; Temp 99.1(TE); Pulse Ox 100% ; Weight 86.18 kg; Height hb 5 ft. 9 in. (175.26 cm); Pain 8/10; 19:14 BP 141 / 67; Pulse 80; Resp 18; Pulse Ox 100% ; ad1 17:37 Body Mass Index 28.06 (86.18 kg, 175.26 cm) hb MDM: 17:44 Patient medically screened. ps1 08/02 17:50 Order name: CBC with Diff; Complete Time: 18:30 ps1 08/02 17:50 Order name: CMP; Complete Time: 18:30 ps1 08/02 17:50 Order name: CT Chest Abdomen W/ Contrast; Complete Time: 19:19 ps1 08/02 17:52 Order name: CT Head Brain wo Cont; Complete Time: 19:19 ps1 Administered Medications: 19:27 Drug: [place] 5 mg-325 mg 1 tabs {Note: AlertCalm 0.} Route: PO; ad1 Disposition: 08/02/19 19:23 Discharged to Home. Impression: Right rib fracture, 8th, Abrasion of abdominal wall. - Condition is Stable. - Discharge Instructions: Rib Fracture. - Prescriptions for lidocaine 5 % Topical adhesive patch,medicated - apply 1 patch by TRANSDERMAL route once daily; 10 Each. Tylenol- Codeine #3 300-30 mg Oral Tablet - take 2 tablet by ORAL route every 6 hours As needed; 30 tablet. Zofran 4 mg Oral Tablet - take 1 tablet by ORAL route every 12 hours As needed; 20 tablet. - Medication Reconciliation Form, Thank You Letter, Antibiotic Education, Prescription Opioid Use form. - Follow up: Private Physician; When: As needed; Reason: Further diagnostic work-up, Recheck today's complaints, Continuance of care, Re-evaluation by your physician. Follow up: Emergency Department; When: As needed; Reason: Fever > 102 F, Trouble breathing, Worsening of condition. - Problem is new. - Symptoms are unchanged. Signatures: Dispatcher [employer] EDMA Estrella Rivera RN RN ad1 Chely Mariano RN RN Tho Leo MD MD ps1 Corrections: (The following items were deleted from the chart) 19:50 19:23 08/02/2019 19:23 Discharged to Home. Impression: Right rib fracture, 8th; ad1 Abrasion of abdominal wall. Condition is Stable. Forms are Medication Reconciliation Form, Thank You Letter, Antibiotic Education, Prescription Opioid Use. Follow up: Private Physician; When: As needed; Reason: Further diagnostic work-up, Recheck today's complaints, Continuance of care, Re-evaluation by your physician. Follow up: Emergency Department; When: As needed; Reason: Fever > 102 F, Trouble breathing, Worsening of condition. Problem is new. Symptoms are unchanged. ps1
[2019-08-02 19:54] VITALS: TEMP 99.1; O2SAT 100
[2019-08-02 19:55] VITALS: BP 141/67
== END 2019-08-02 19:50 | disposition home or self-care (01) ==
LOC: ER 17:28
DX: S22.31XA Fracture of one rib, right side, initial encounter for closed fracture (principal); S30.811A Abrasion of abdominal wall, initial encounter; W01.198A Fall on same level from slipping, tripping and stumbling with subsequent striking against other object, initial encounter; Y93.02 Activity, running; Y92.821 Forest as the place of occurrence of the external cause; F10.20 Alcohol dependence, uncomplicated; I25.2 Old myocardial infarction; F17.210 Nicotine dependence, cigarettes, uncomplicated
CPT/HCPCS: 85025; 36415; 80053; 74160; 70450; 71260; 99284; Q9967

== ENCOUNTER 2019-08-09 22:04 | Emergency (ER) | payer OTHER ==
--- NOTE | 2019-08-09 23:32 | ER ---
Nurse's Notes [facility] Name: Melody Akins Jr Age: 53 yrs Sex: Male : 1965 Arrival Date: 08/09/2019 Time: 22:06 Bed 9 Private MD: Diagnosis: Multiple fractures of ribs, right side Presentation: 08/09 22:14 Presenting complaint: Patient states: he was seen here on 08/02 for a fall injury with aa1 broken ribs and reports he is out of pain medication and is still having a lot of pain. States, "I been eatin them things like M\\T\\Ms and it didn't do nothin.". Transition of care: patient was not received from another setting of care. Onset of symptoms was August 02, 2019. Risk Assessment: Do you want to hurt yourself or someone else? Patient reports no desire to harm self or others. Initial Sepsis Screen: Does the patient meet any 2 criteria? No. Patient's initial sepsis screen is negative. Does the patient have a suspected source of infection? No. Patient's initial sepsis screen is negative. Care prior to arrival: None. 22:14 Method Of Arrival: Ambulatory aa1 22:14 Acuity: RANDAL 5 aa1 Triage Assessment: 22:16 General: Appears in no apparent distress. comfortable, Behavior is calm, cooperative, aa1 appropriate for age. Historical: - Allergies: 22:16 No Known Allergies; aa1 - Home Meds: 22:16 None [Active]; aa1 - PMHx: 22:16 Alcoholism; CVA; Myocardial infarction; Gout; Arthritis; aa1 - PSHx: 22:16 Hernia repair; Gastric Bypass; Cholecystectomy; aa1 - Immunization history:: Flu vaccine is not up to date. - Social history:: Smoking status: Patient denies any tobacco usage or history of. Patient uses alcohol, on a daily basis. - Ebola Screening: : No symptoms or risks identified at this time. Screenin:04 Abuse screen: Denies threats or abuse. Denies injuries from another. Nutritional aa1 screening: No deficits noted. Tuberculosis screening: No symptoms or risk factors identified. Fall Risk None identified. Assessment: 23:04 General: Appears in no apparent distress. comfortable, Behavior is calm, cooperative, aa1 appropriate for age. Pain: Complains of pain in rib cage Pain began 1 week ago Aggravated by cough. Neuro: Level of Consciousness is awake, alert, obeys commands, Oriented to person, place, time, situation, Moves all extremities. Full function Gait is steady. Respiratory: Airway is patent Respiratory effort is even, unlabored, Respiratory pattern is regular, symmetrical, Breath sounds are clear bilaterally. GI: No signs and/or symptoms were reported involving the gastrointestinal system. : No signs and/or symptoms were reported regarding the genitourinary system. EENT: No signs and/or symptoms were reported regarding the EENT system. Derm: Skin is intact, is healthy with good turgor, Skin is pink, warm \\T\\ dry. Musculoskeletal: Circulation, motion, and sensation intact. Capillary refill < 3 seconds. 23:44 Reassessment: Patient appears in no apparent distress at this time. Patient is alert, aa1 oriented x 3, equal unlabored respirations, skin warm/dry/pink. Discussed d/c \\T\\ f/u instructions with pt; denies questions or concerns at this time. Ambulatory to [facility] with steady gait. Vital Signs: 22:16 BP 128 / 84; Pulse 76; Resp 18; Temp 98.9; Pulse Ox 98% on R/A; Weight 86.18 kg; Height aa1 5 ft. 10 in. (177.80 cm); Pain 8/10; 22:16 Body Mass Index 27.26 (86.18 kg, 177.80 cm) aa1 ED Course: 22:06 Patient arrived in ED. cf2 22:16 Triage completed. aa1 22:16 Arm band placed on right wrist. aa1 22:38 Patient's name was called from [facility]. No response. aa1 23:04 Ritu Thompson, BRANDON is Primary Nurse. aa1 23:04 Patient has correct armband on for positive identification. Bed in low position. Call aa1 light in reach. 23:07 Carlin Fagan MD is Attending Physician. tw4 23:44 No provider procedures requiring assistance completed. Patient did not have IV access aa1 during this emergency room visit. Administered Medications: 23:44 Drug: traMADol 50 mg Route: PO; aa1 23:44 Follow up: Response: Medication administered at discharge. aa1 Outcome: 23:32 Discharge ordered by . tw4 23:44 Discharged to home ambulatory. aa1 23:44 Condition: good 23:44 Discharge instructions given to patient, Instructed on discharge instructions, follow up and referral plans. medication usage, Demonstrated understanding of instructions, follow-up care, medications, Prescriptions given X 2. 23:44 Patient left the ED. aa1 Signatures: Ritu Thompson RN RN aa1 Carlin Fagan MD MD tw4 Doris Heredia cf2
[2019-08-09] MEDS ORDERED: TRAMADOL HCL 50 MG TAB ONE (23:37)
[2019-08-10 16:04] VITALS: BP 128/84; TEMP 98.9; O2SAT 98
--- NOTE | 2019-08-10 23:45 | EDPHYS ---
Physician Documentation [facility] Name: Melody Akins Jr Age: 53 yrs Sex: Male : 1965 Arrival Date: 08/09/2019 Time: 22:06 Bed 9 Private MD: ED Physician Carlin Faagn HPI: 08/10 03:30 This 53 yrs old Male presents to ER via Ambulatory with complaints of Rib tw4 Pain. 03:30 The patient presents to the emergency department requesting refill(s) for: tramadol. tw4 The patient chronically suffers from recent rib fractures. The patient has not experienced similar symptoms in the past. The patient has been recently seen at the [facility] Emergency Department, this week. Historical: - Allergies: 08/09 22:16 No Known Allergies; aa1 - Home Meds: 22:16 None [Active]; aa1 - PMHx: 22:16 Alcoholism; CVA; Myocardial infarction; Gout; Arthritis; aa1 - PSHx: 22:16 Hernia repair; Gastric Bypass; Cholecystectomy; aa1 - Immunization history:: Flu vaccine is not up to date. - Social history:: Smoking status: Patient denies any tobacco usage or history of. Patient uses alcohol, on a daily basis. - Ebola Screening: : No symptoms or risks identified at this time. ROS: 08/10 03:30 Constitutional: Negative for fever, chills, and weight loss, Eyes: Negative for injury, tw4 pain, redness, and discharge, Respiratory: Negative for shortness of breath, cough, wheezing, and pleuritic chest pain, Abdomen/GI: Negative for abdominal pain, nausea, vomiting, diarrhea, and constipation, Back: Negative for injury and pain, MS/Extremity: Negative for injury and deformity, Skin: Negative for injury, rash, and discoloration. Cardiovascular: Positive for chest pain, with movement, Negative for edema, orthopnea, palpitations, paroxysmal nocturnal dyspnea. Exam: 03:30 Constitutional: This is a well developed, well nourished patient who is awake, alert, tw4 and in no acute distress. Head/Face: Normocephalic, atraumatic. Chest/axilla: Normal chest wall appearance and motion. Nontender with no deformity. No lesions are appreciated. Cardiovascular: Regular rate and rhythm with a normal S1 and S2. No gallops, murmurs, or rubs. Normal PMI, no JVD. No pulse deficits. Respiratory: Lungs have equal breath sounds bilaterally, clear to auscultation and percussion. No rales, rhonchi or wheezes noted. No increased work of breathing, no retractions or nasal flaring. Abdomen/GI: Soft, non-tender, with normal bowel sounds. No distension or tympany. No guarding or rebound. No evidence of tenderness throughout. Back: No spinal tenderness. No costovertebral tenderness. Full range of motion. MS/ Extremity: Pulses equal, no cyanosis. Neurovascular intact. Full, normal range of motion. Neuro: Awake and alert, GCS 15, oriented to person, place, time, and situation. Cranial nerves II-XII grossly intact. Motor strength 5/5 in all extremities. Sensory grossly intact. Cerebellar exam normal. Normal gait. Vital Signs: 08/09 22:16 BP 128 / 84; Pulse 76; Resp 18; Temp 98.9; Pulse Ox 98% on R/A; Weight 86.18 kg; Height aa1 5 ft. 10 in. (177.80 cm); Pain 8/10; 22:16 Body Mass Index 27.26 (86.18 kg, 177.80 cm) aa1 MDM: 23:07 Patient medically screened. tw4 08/10 03:30 Data reviewed: vital signs, nurses notes. Data interpreted: Pulse oximetry: tw4 Interpretation: normal. Counseling: I had a detailed discussion with the patient and/or guardian regarding: the historical points, exam findings, and any diagnostic results supporting the discharge/admit diagnosis. Special discussion: I discussed with the patient/guardian in detail that at this point there is no indication for admission to the hospital. It is understood, however, that if the symptoms persist or worsen the patient needs to return immediately for re-evaluation. Administered Medications: 08/09 23:44 Drug: traMADol 50 mg Route: PO; aa1 23:44 Follow up: Response: Medication administered at discharge. aa1 Disposition: 08/09/19 23:32 Discharged to Home. Impression: Multiple fractures of ribs, right side. - Condition is Stable. - Discharge Instructions: Rib Fracture. - Prescriptions for Ibuprofen 800 mg Oral Tablet - take 1 tablet by ORAL route every 8 hours As needed take with food; 30 tablet. Tramadol 50 mg Oral Tablet - take 1 tablet by ORAL route every 8 hours as needed; 12 tablet. - Medication Reconciliation Form, Thank You Letter, Antibiotic Education, Prescription Opioid Use form. - Follow up: Private Physician; When: Upon discharge from the Emergency Department; Reason: Recheck today's complaints, Continuance of care. - Problem is new. - Symptoms have improved. Signatures: Ritu Thompson RN RN aa1 Carlin Fagan MD MD tw4 Corrections: (The following items were deleted from the chart) 23:44 23:32 08/09/2019 23:32 Discharged to Home. Impression: Multiple fractures of ribs, aa1 right side. Condition is Stable. Forms are Medication Reconciliation Form, Thank You Letter, Antibiotic Education, Prescription Opioid Use. Follow up: Private Physician; When: Upon discharge from the Emergency Department; Reason: Recheck today's complaints, Continuance of care. Problem is new. Symptoms have improved. tw4
== END 2019-08-09 23:44 | disposition home or self-care (01) ==
LOC: ER 22:04
DX: S22.41XA Multiple fractures of ribs, right side, initial encounter for closed fracture (principal); S27.9XXA Injury of unspecified intrathoracic organ, initial encounter; W19.XXXA Unspecified fall, initial encounter; Y93.9 Activity, unspecified; Y92.9 Unspecified place or not applicable
CPT/HCPCS: 99283

== ENCOUNTER 2019-08-10 11:11 | Emergency (ER) | payer OTHER ==
--- NOTE | 2019-08-10 12:29 | RAD REPORT ---
EXAM DESCRIPTION: RAD - Chest Single View - 08/10/2019 12:21 pm CLINICAL HISTORY: right sided rib injury COMPARISON: Chest Single View dated 06/06/2017; Chest Abdomen W Con dated 08/02/2019 TECHNIQUE: AP portable chest image was obtained 08/10/2019 12:21 pm . FINDINGS: Lung volumes are low. Heart and vasculature are normal. No measurable pleural effusion and no pneumothorax. No acute bone finding identified. Prior CT imaging showed a lateral lower right rib fracture. This portion of the chest is limited in visualization on portable imaging. IMPRESSION: No acute cardiopulmonary process. Lateral lower ribcage is poorly visualized on a shallow inspiration portable exam.
[2019-08-10] MEDS ORDERED: MORPHINE 4 MG/ML SYR ONE (12:33)
[2019-08-10] MEDS ORDERED: ONDANSETRON 4 MG (ODT) TAB ONE (12:33)
--- NOTE | 2019-08-10 12:50 | RAD REPORT ---
EXAM DESCRIPTION: US - Scrotum Testicles - 08/10/2019 12:37 pm CLINICAL HISTORY: SWELLING COMPARISON: Scrotum Testicles dated 07/30/2019 FINDINGS: No epididymis or testicle abnormality. Doppler evaluation shows normal blood flow. Again n oted is the very large right-sided hydrocele. This is not significantly different from the comparison . No hernia seen. IMPRESSION: Very large right side hydrocele similar to July 30 imaging.
--- NOTE | 2019-08-10 13:11 | EDPHYS ---
Physician Documentation [facility] Name: Melody Akins Jr Age: 53 yrs Sex: Male : 1965 Arrival Date: 08/10/2019 Time: 11:20 Bed 19 Private MD: Felix Sanchez ED Physician Alberto Perez HPI: 08/10 12:05 This 53 yrs old Male presents to ER via Ambulatory with complaints of Rib jmm pain. 12:05 The patient or guardian reports chest pain that is located primarily in the right jmm lateral anterior chest. Onset: The symptoms/episode began/occurred acutely, 1 week(s) ago. The pain does not radiate. Associated signs and symptoms: Pertinent positives: pain. The chest pain is described as sharp. Duration: The patient or guardian reports a single episode, that is still ongoing. Modifying factors: the symptoms are aggravated by deep breath. Patient also complaints of right scrotal pain which has been ongoing for 2 months. Denies injury. Has been previously evaluated. . Historical: - Allergies: 11:28 No Known Allergies; iw - Home Meds: 11:28 None [Active]; iw - PMHx: 11:28 Alcoholism; Arthritis; CVA; Gout; Myocardial infarction; Schizophrenia; iw - PSHx: 11:28 Hernia repair; Gastric Bypass; Cholecystectomy; iw - Immunization history:: Adult Immunizations. - Social history:: Smoking status: Patient denies any tobacco usage or history of. - Ebola Screening: : Patient negative for fever greater than or equal to 101.5 degrees Fahrenheit, and additional compatible Ebola Virus Disease symptoms Patient denies exposure to infectious person Patient denies travel to an Ebola-affected area in the 21 days before illness onset No symptoms or risks identified at this time. ROS: 12:05 Constitutional: Negative for fever, chills, and weight loss. jmm 12:05 Cardiovascular: Positive for chest pain, with cough, with movement. 12:05 : Positive for testicular pain 12:05 All other systems are negative. Exam: 12:05 Constitutional: This is a well developed, well nourished patient who is awake, alert, jmm and in no acute distress. Head/Face: atraumatic. Eyes: EOMI, no conjunctival erythema appreciated ENT: Moist Mucus Membranes Neck: Trachea midline, Supple 12:05 Cardiovascular: Regular rate and rhythm. No edema appreciated Respiratory: Normal respirations, no respiratory distress appreciated Abdomen/GI: Non distended, soft Back: Normal ROM Skin: General appearance color normal 12:05 MS/ Extremity: Moves all extremities, no obvious deformities appreciated, no edema noted to the lower extremities Neuro: Awake and alert, normal gait Psych: Behavior is normal, Mood is normal, Patient is cooperative and pleasant 12:05 Chest/axilla: Palpation: tenderness, that is moderate, of the right lateral anterior chest. 12:05 : Male external genitalia: swelling, scrotal. Vital Signs: 11:28 BP 126 / 89; Pulse 66; Resp 16; Temp 98.2; Pulse Ox 99% on R/A; Weight 86.18 kg; Height iw 5 ft. 10 in. (177.80 cm); Pain 10/10; 12:40 BP 157 / 93; Pulse 58; Resp 17; Pulse Ox 99% on R/A; tw2 13:42 BP 151 / 91; Pulse 56; Resp 17; Pulse Ox 99% on R/A; tw2 11:28 Body Mass Index 27.26 (86.18 kg, 177.80 cm) iw MDM: 11:53 Patient medically screened. [facility] 13:02 Data reviewed: vital signs, nurses notes. Counseling: I had a detailed discussion with chase the patient and/or guardian regarding: the historical points, exam findings, and any diagnostic results supporting the discharge/admit diagnosis, radiology results, the need for outpatient follow up, to return to the emergency department if symptoms worsen or persist or if there are any questions or concerns that arise at home. ED course: Patient is advised to follow up with urology for further evaluation. patient is otherwise given strict return precautions. patient understood and agrees with the plan of care. . 08/10 12:08 Order name: Chest Single View XRAY; Complete Time: 12:44 [facility] 08/10 12:08 Order name: US Scrotum Testicles; Complete Time: 12:52 [facility] 08/10 12:54 Order name: INCENTIVE SPIROMETRY [facility] Administered Medications: 12:54 Drug: morphine 4 mg Route: IM; Site: left deltoid; tw2 13:40 Follow up: Response: No adverse reaction; Pain is decreased; RASS: Alert and Calm (0) tw2 12:55 Drug: Zofran 4 mg Route: PO; tw2 13:40 Follow up: Response: No adverse reaction tw2 Disposition: 16:48 Co-signature as Attending Physician, Alberto Perez MD. rn Disposition: 08/10/19 13:09 Discharged to Home. Impression: Hydrocele, unspecified, Rib Pain. - Condition is Stable. - Discharge Instructions: Rib Fracture, Hydrocele, Adult. - Prescriptions for Tylenol- Codeine #3 300-30 mg Oral Tablet - take 1 tablet by ORAL route every 6 hours As needed; 12 tablet. - Medication Reconciliation Form, Thank You Letter, Antibiotic Education, Prescription Opioid Use, Work release form form. - Follow up: Jacky Valenzuela MD; When: 2 - 3 days; Reason: Recheck today's complaints, Continuance of care, Re-evaluation by your physician. Signatures: Dispatcher [employer] EDMS Charbel Ybarra PA PA jmm Williams, Irene, RN RN iw Nieto, Roman, MD MD rn Wise, Tara, RN RN tw2 Corrections: (The following items were deleted from the chart) 13:45 13:09 08/10/2019 13:09 Discharged to Home. Impression: Hydrocele, unspecified; Rib tw2 Pain. Condition is Stable. Forms are Work release form, Medication Reconciliation Form, Thank You Letter, Antibiotic Education, Prescription Opioid Use. Follow up: Jacky Valenzuela; When: 2 - 3 days; Reason: Recheck today's complaints, Continuance of care, Re-evaluation by your physician. chase
--- NOTE | 2019-08-10 13:11 | ER ---
Nurse's Notes [facility] Name: Melody Akins Jr Age: 53 yrs Sex: Male : 1965 Arrival Date: 08/10/2019 Time: 11:20 Bed 19 Private MD: Felix Sanchez Diagnosis: Hydrocele, unspecified;Rib Pain Presentation: 08/10 11:27 Presenting complaint: Patient states: broken rib on right side, was seen here yesterday iw evening, still having a lot of pain, just can;t get a good breath bc it hurts. Transition of care: patient was not received from another setting of care. Onset of symptoms was August 08, 2019. Risk Assessment: Do you want to hurt yourself or someone else? Patient reports no desire to harm self or others. Initial Sepsis Screen: Does the patient meet any 2 criteria? No. Patient's initial sepsis screen is negative. Does the patient have a suspected source of infection? No. Patient's initial sepsis screen is negative. Care prior to arrival: None. 11:27 Method Of Arrival: Ambulatory iw 11:27 Acuity: RANDAL 4 iw Historical: - Allergies: 11:28 No Known Allergies; iw - Home Meds: 11:28 None [Active]; iw - PMHx: 11:28 Alcoholism; Arthritis; CVA; Gout; Myocardial infarction; Schizophrenia; iw - PSHx: 11:28 Hernia repair; Gastric Bypass; Cholecystectomy; iw - Immunization history:: Adult Immunizations. - Social history:: Smoking status: Patient denies any tobacco usage or history of. - Ebola Screening: : Patient negative for fever greater than or equal to 101.5 degrees Fahrenheit, and additional compatible Ebola Virus Disease symptoms Patient denies exposure to infectious person Patient denies travel to an Ebola-affected area in the 21 days before illness onset No symptoms or risks identified at this time. Screenin:30 Abuse screen: Denies threats or abuse. Nutritional screening: No deficits noted. tw2 Tuberculosis screening: No symptoms or risk factors identified. Fall Risk None identified. Assessment: 11:32 Reassessment: pt reports "my right testicle is swollen, this has happened before and tw2 they gave me medicine and it got better", pt given gown and blanket at this time. 11:40 General: Appears in no apparent distress. Behavior is calm, cooperative, appropriate tw2 for age. Pain: Complains of pain in right ribs. Neuro: Level of Consciousness is awake, alert, obeys commands, Oriented to person, place, time, situation. Cardiovascular: Patient's skin is warm and dry. Respiratory: Airway is patent Respiratory effort is even, unlabored, Respiratory pattern is regular, symmetrical. GI: No signs and/or symptoms were reported involving the gastrointestinal system. : Reports scrotal swelling on right scrotum. EENT: No signs and/or symptoms were reported regarding the EENT system. Derm: No signs and/or symptoms reported regarding the dermatologic system. Musculoskeletal: Range of motion: intact in all extremities. 12:40 Reassessment: Patient appears in no apparent distress at this time. No changes from tw2 previously documented assessment. Patient and/or family updated on plan of care and expected duration. Pain level reassessed. Patient is alert, oriented x 3, equal unlabored respirations, skin warm/dry/pink. 13:45 Reassessment: Patient appears in no apparent distress at this time. No changes from tw2 previously documented assessment. Patient and/or family updated on plan of care and expected duration. Pain level reassessed. Patient is alert, oriented x 3, equal unlabored respirations, skin warm/dry/pink. Vital Signs: 11:28 BP 126 / 89; Pulse 66; Resp 16; Temp 98.2; Pulse Ox 99% on R/A; Weight 86.18 kg; Height iw 5 ft. 10 in. (177.80 cm); Pain 10/10; 12:40 BP 157 / 93; Pulse 58; Resp 17; Pulse Ox 99% on R/A; tw2 13:42 BP 151 / 91; Pulse 56; Resp 17; Pulse Ox 99% on R/A; tw2 11:28 Body Mass Index 27.26 (86.18 kg, 177.80 cm) iw ED Course: 11:20 Patient arrived in ED. mr 11:21 Felix Sanchez MD is Private Physician. mr 11:28 Triage completed. iw 11:30 Abbie Dias RN is Primary Nurse. tw2 11:30 Bed in low position. Call light in reach. tw2 11:30 Arm band placed on. tw2 11:32 Mickail, Charbel, PA is PHCP. jmm 11:32 Alberto Perez MD is Attending Physician. jmm 12:22 Chest Single View XRAY In Process Unspecified. EDMS 12:37 US Scrotum Testicles In Process Unspecified. EDMS 13:08 Jacky Valenzuela MD is Referral Physician. jmm 13:44 No provider procedures requiring assistance completed. Patient did not have IV access tw2 during this emergency room visit. Administered Medications: 12:54 Drug: morphine 4 mg Route: IM; Site: left deltoid; tw2 13:40 Follow up: Response: No adverse reaction; Pain is decreased; RASS: Alert and Calm (0) tw2 12:55 Drug: Zofran 4 mg Route: PO; tw2 13:40 Follow up: Response: No adverse reaction tw2 Outcome: 13:09 Discharge ordered by . jmm 13:43 Discharged to home ambulatory. tw2 13:43 Condition: stable 13:43 Discharge instructions given to patient, Instructed on discharge instructions, follow up and referral plans. no drinking with medication, no driving heavy equipment, medication usage, Demonstrated understanding of instructions, follow-up care, medications, Prescriptions given X 1. 13:45 Patient left the ED. tw2 Signatures: Dispatcher [employer] EDMS Charbel Ybarra PA PA jackie Funga Saira mr Yaquelin Myers RN RN iw Abbie Dias RN RN tw2 Corrections: (The following items were deleted from the chart) 13:43 13:42 BP 157 / 93; Pulse 58bpm; Resp 17bpm; Pulse Ox 99% RA; tw2 tw2
[2019-08-10 20:30] VITALS: TEMP 98.2; O2SAT 99
[2019-08-10 20:33] VITALS: BP 151/91
== END 2019-08-10 13:45 | disposition home or self-care (01) ==
LOC: ER 11:11
DX: N43.3 Hydrocele, unspecified (principal); R07.81 Pleurodynia; F10.20 Alcohol dependence, uncomplicated; I25.2 Old myocardial infarction
CPT/HCPCS: 71045; 76870; 96372; 99283